=== PATIENT | female | born 1935 | race African-American/Black ===

== ENCOUNTER → 2017-10-09 14:58 | Outpatient (CLI) | payer MEDICARE, OTHER ==
[2015-04-26 14:18] VITALS: BMI 33.9
[~2017-10-09 14:58] MED LIST: CELEXA20 MG PO; COLACE100 MG PO; CYCLOBENZAPRINE10 MG PO; ELIQUIS2.5 MG PO; HYDREA; HYDROCHLOROTHIA25 MG PO; HYDROXYUREA500 MG PO; ISOSORBIDE DINI10 MG PO; ISOSORBIDE MONO30 M1 PO; LYRICA150 MG PO; MAXZIDE 75/501 TAB PO; NEXIUM40 MG PO; NORCO 7.5/325 T1 TA1 PO; PERCOCET 10/3251 TA1 PO; POTASSIUM CHLO10 ME1 PO; PREMARIN0.3 MG PO; ZETIA10 MG PO; ZOFRAN4 MG PO
== END | disposition home or self-care (01) ==
LOC: D.MRI 14:58
DX: M54.12 Radiculopathy, cervical region (principal)

== ENCOUNTER 2018-07-12 09:56 | Day surgery (SDC) | payer MEDICARE, OTHER ==
[2018-07-12 10:29] LABS: BASOPHILS 1.2 % (0-2); EOSINOPHILS 1.5 % (0-7); HEMATOCRIT 39.9 % (36.0-48.0); HEMOGLOBIN 12.6 g/dL (12-16); MCH 25.7 pg (26.0-34.0); MCHC 31.6 g/dL (31.0-37.0); MCV 81.3 fL (80.0-100.0); MONOCYTES 8.7 % (2-11); NEUTROPHILS 75.6 % (40-80); RBC 4.91 10x6/uL (4.00-5.40); RDW 23.5 % (11.5-14.5); WBC 10.4 10x3/uL (4.8-10.8)
[2018-07-12 10:30] LABS: PLATELET COUNT 457 10x3/uL (130-400)
[2018-07-12 10:37] LABS: ANION GAP 10.8 mmol/L (8-16); CALCIUM 8.8 mg/dL (8.5-10.1); CARBON DIOXIDE 31.1 mmol/L (21.0-32.0); CREATININE - SERUM 1.3 mg/dL (0.6-1.3); POTASSIUM - SERUM 3.9 mmol/L (3.5-5.1)
[2018-07-12 11:23] VITALS: BP 157/68; BMI 35.2
[2018-07-12] MEDS ORDERED: HYDROCODON-ACE1 EA10 PO (13:59)
--- NOTE | 2018-07-13 14:15 | OP ---
PATIENT NAME: ZENIA DILL MEDICAL RECORD: [id number] :31 LOCATION:D.OPS ADMISSION DATE: SURGEON: ALBERT HUDSON MD DATE OF OPERATION: 07/12/2018 PREOPERATIVE DIAGNOSIS: Carpal tunnel syndrome of the right wrist. POSTOPERATIVE DIAGNOSIS: Carpal tunnel syndrome of the right wrist. PROCEDURE: Right carpal tunnel release. SURGEON: Albert Hudson MD ANESTHESIA: General. INTRAOPERATIVE COMPLICATIONS: None. SUMMARY OF PATHOLOGIC FINDINGS: The patient had a very tight transverse carpal ligament, consistent with preoperative diagnosis. OPERATIVE SUMMARY IN DETAIL: After obtaining the appropriate preoperative orthopedic surgery consent as well as anesthetic consultation, evaluation, and clearance, the patient was brought to the operating room and placed on the operating table in the supine position. After general laryngeal mask was administered, tourniquet was placed about the proximal aspect of the right upper extremity. The right upper extremity was then prepped and draped in a routine sterile fashion. Arm was exsanguinated. Tourniquet was inflated to 250 mmHg. A mid palmar crease incision was created and taken down to the level of the palmar fascia, which was incised to reveal the distal aspect of the transverse carpal ligament, which was incised to reveal the median nerve. The patient's transverse carpal ligament was very thickened and compressive. Under direct visualization, with fair protection, the entire transverse carpal ligament was incised to the proximal wrist crease. Under direct visualization, the wound was then irrigated and closed with 4-0 Prolene. Area was locally infiltrated with 0.25% Marcaine plain. Sterile dressings were applied. Tourniquet was deflated. The patient was awakened and taken to the recovery room in stable condition. All final needle and sponge counts were correct. TRANSINT:[id number] Voice Confirmation ID: [id number] DOCUMENT ID: [id number] ALBERT HUDSON MD at 1415 CC: [id number] DICTATION DATE: 07/12/18 1401 QUARTER BACKER: 07/12/182224 [facility] 07/12/18 [place] [address]
== END 2018-07-12 18:25 | disposition home or self-care (01) ==
LOC: D.OPS 09:56
PROVIDERS: Anesthesiology
DX: G56.01 Carpal tunnel syndrome, right upper limb (principal); Z01.812 Encounter for preprocedural laboratory examination

== ENCOUNTER 2018-11-11 05:30 | Day surgery (SDC) | payer MEDICARE, OTHER ==
[2018-11-10 16:33] LABS: HEMATOCRIT 35.6 % (36.0-48.0); HEMOGLOBIN 11.4 g/dL (12-16); MCH 25.3 pg (26.0-34.0); MCV 79.1 fL (80.0-100.0); RDW 24.6 % (11.5-14.5); WBC 10.2 10x3/uL (4.8-10.8)
[2018-11-10 16:36] LABS: ANION GAP 14.9 mmol/L (8-16); CALCIUM 8.6 mg/dL (8.5-10.1); CARBON DIOXIDE 25.3 mmol/L (21.0-32.0); CREATININE - SERUM 1.4 mg/dL (0.6-1.3); POTASSIUM - SERUM 4.2 mmol/L (3.5-5.1)
[2018-11-10 16:49] LABS: PLATELET COUNT 611 10x3/uL (130-400)
[2018-11-10 17:28] LABS: EOSINOPHILS 4 % (0-7); LYMPHOCYTES 17 % (15-50); MONOCYTES 1 % (2-11); NEUTROPHILS 77 % (40-80); PLATELET ESTIMATE INCREASED
[~2018-11-11] VITALS: Ht 162.6 cm; Wt 93.0 kg
[~2018-11-11 05:30] MED LIST changes: +HYDROCODON-ACE1 EA10 PO
[2018-11-11] MEDS ORDERED: BAYER CHEWABLE81 MG PO (06:19)
[2018-11-11 06:30] VITALS: BP 144/68; Ht 162.6 cm; Wt 93.0 kg
--- NOTE | 2018-11-11 08:05 | NUR ---
0745 - PT DISPLAYS ATYPICAL HEART RHYTHM, BIGEMINYWITH PACS, PVCS. 12 LEAD AKG ORDERED BY ANESTHESIA. DR LERNER WILL EVALUATE.
--- NOTE | 2018-11-11 08:16 | NUR ---
POST [address] EVALU[address] BY [address] LERNER. ORDERS RECEIVED AND IMPLEMENTED.
[2018-11-11] MEDS ORDERED: HYDROCODON-ACE1 EA10 PO (08:26)
--- NOTE | 2018-11-11 08:31 | NUR ---
BIGEMINY CONVERT TO SINUS POST ADMINISTRATION OF LIDOCAINE, THEN RETURNS TO BIGEMINY. DR LERNER RECOMMENDS THAT PTSEE HER SPECIAL DELIVERY MESSENGER PROMPTLY. PT HAS EXISTING SPECIAL DELIVERY MESSENGER IN [place].
--- NOTE | 2018-11-11 09:45 | NUR ---
PATIENT UP AND AROUND IN ROOM WITH STAND-BY ASSIST. NO DIZZINESS OR UNSTEADINESS. PIV DC'D WITH TIP INTACT. DISCHARGE INSTRUCTIONS REVIEWED WITH PATIENT. AWAITING SON TO ARRIVE TO PROVIDE TRANSPORTATION HOME. PATIENT SITTING IN CHAIR IN ROOM WITH CALL BUTTON IN HAND
--- NOTE | 2018-11-11 10:30 | NUR ---
PATIENT'S SON HAS ARRIVED, DISCHARGED HOME VIA WHEELCHAIR TO PRIVATE VEHICLE WITH SON. THIS NURSE REINFORCES VERBALLY WITH SON AND PATIENT THAT RIGHT FINGER SWELLING NEEDS TO BE ADDRESSED BY PRIMARY CARE TOMORROW
--- NOTE | 2018-11-12 15:25 | OP ---
PATIENT NAME: ZENIA DILL MEDICAL RECORD: [id number] :33 LOCATION:D.OPS ADMISSION DATE: SURGEON: ALBERT HUDSON MD DATE OF OPERATION: 11/11/2018 PREOPERATIVE DIAGNOSIS: Carpal tunnel syndrome of the left wrist. POSTOPERATIVE DIAGNOSIS: Carpal tunnel syndrome of the left wrist. PROCEDURE: Carpal tunnel release. SURGEON: Albert Hudson MD RIVET HEATER GAS: Caitlin Dewitt INTRAOPERATIVE COMPLICATIONS: None. SUMMARY OF PATHOLOGIC FINDINGS: The patient has very a tight transverse carpal ligament consistent with preoperative diagnosis. OPERATIVE SUMMARY IN DETAIL: After obtaining the appropriate preoperative orthopedic surgery consent as well as anesthetic consultation, evaluation and clearance, the patient was brought to the operating room and placed on the operating table in a supine position. After adequate general laryngeal mask airway was administered, tourniquet was placed about the proximal aspect of the left upper extremity. Left upper extremity was then prepped and draped in routine sterile fashion. At this point, the appropriate preoperative time-out was taken including the appropriate operative site, medications as well as antibiotics. At this point, the arm was elevated and exsanguinated, tourniquet inflated to 250 mmHg. A mid palmar incision was made in line with the fourth metacarpal ray, was taken down to the level of the transverse carpal ligament distally which was identified and incised. The median nerve was identified and then protected with a freer elevator. At this point, Nanotion light knife was utilized to completely excise the transverse carpal ligament under direct visualization. Having completed this, the wound was irrigated and closed. The area was locally infiltrated with 0.25% Marcaine plain. Sterile dressings were applied. Tourniquet was deflated. The patient was awakened and taken to the recovery room in stable condition. All final needle and sponge counts were correct. TRANSINT:[id number] Voice Confirmation ID: [id number] DOCUMENT ID: [id number] ALBERT HUDSON MD at 1525 CC: [id number] DICTATION DATE: 11/12/18 1033 HAND STAPLER: 11/12/18 1112 [facility] 11/11/18 [place] [address]
== END 2018-11-11 10:32 | disposition home or self-care (01) ==
LOC: D.OPS 05:30
PROVIDERS: Anesthesiology; ATTEND Orthopaedic Surgery
DX: G56.02 Carpal tunnel syndrome, left upper limb (principal); Z01.812 Encounter for preprocedural laboratory examination

== ENCOUNTER 2019-01-22 09:40 | Emergency (ER) | payer MEDICARE, OTHER ==
[~2019-01-22] VITALS: Ht 162.6 cm; Wt 90.0 kg
[~2019-01-22 09:40] MED LIST changes: +BAYER CHEWABLE81 MG PO
[2019-01-22 09:48] VITALS: Ht 162.6 cm; Wt 90.0 kg
[2019-01-22] MEDS ORDERED: SEROQUEL50 MG PO (09:53)
[2019-01-22] MEDS ORDERED: VOLTAREN100 GM TOPICAL (09:54)
[2019-01-22] MEDS ORDERED: MAXZIDE 75/501 TAB PO (09:54)
[2019-01-22] MEDS ORDERED: ULTRAM50 MG PO (11:27)
[2019-01-22] MEDS ORDERED: PREDNISONE10 MG PO (11:27)
[2019-01-22 12:23] VITALS: BP 128/82
== END 2019-01-22 12:24 | disposition home or self-care (01) ==
LOC: D.ER 09:40
DX: M79.672 Pain in left foot (principal)

== ENCOUNTER → 2019-03-28 16:23 | Outpatient (CLI) | payer MEDICARE, OTHER ==
[2019-01-22 09:48] VITALS: BMI 34.0
[~2019-03-28 16:23] MED LIST changes: +PREDNISONE10 MG PO; +SEROQUEL50 MG PO; +ULTRAM50 MG PO; +VOLTAREN100 GM TOPICAL
[2019-03-28 17:09] LABS: BASOPHILS 1.1 % (0-2); HEMOGLOBIN 11.7 g/dL (12-16); IMMATURE GRANULOCYTES 0.8 % (0-5); LYMPHOCYTES 10.9 % (15-50); MCH 25.7 pg (26.0-34.0); MCHC 30.8 g/dL (31.0-37.0); MCV 83.5 fL (80.0-100.0); MONOCYTES 5.1 % (2-11); NEUTROPHILS 81.1 % (40-80); PLATELET COUNT 534 10x3/uL (130-400); RBC 4.55 10x6/uL (4.00-5.40); RDW 25.6 % (11.5-14.5); WBC 13.4 10x3/uL (4.8-10.8)
[2019-03-28 17:45] LABS: ANION GAP 11.3 mmol/L (8-16); CALCIUM 8.9 mg/dL (8.5-10.1); CARBON DIOXIDE 29.7 mmol/L (21.0-32.0); CREATININE - SERUM 1.3 mg/dL (0.6-1.3); URIC ACID 6.7 mg/dL (2.6-7.2)
== END | disposition home or self-care (01) ==
LOC: D.LAB 16:23
PROVIDERS: ATTEND Family Medicine
DX: M10.9 Gout, unspecified (principal)

== ENCOUNTER → 2019-10-21 09:59 | Outpatient (CLI) | payer MEDICARE, OTHER ==
[2019-01-22 09:48] VITALS: BMI 34.0
== END | disposition home or self-care (01) ==
LOC: D.MRI 09:59
PROVIDERS: ATTEND Orthopaedic Surgery
DX: M54.16 Radiculopathy, lumbar region (principal)

== ENCOUNTER 2020-05-26 10:07 | Inpatient (IN) | payer MEDICARE, OTHER ==
[~2020-05-26] VITALS: Ht 162.6 cm; Wt 74.8 kg
[2020-05-26] MEDS ORDERED: HYDROCODONE-AC1 EAC2 PO (10:27)
[2020-05-26] MEDS ORDERED: ESTRACE 0.5 MG0.5 MG PO (10:27)
[2020-05-26 10:32] LABS: BASOPHILS 1.3 % (0-2); HEMATOCRIT 36.4 % (36.0-48.0); HEMOGLOBIN 12.3 g/dL (12-16); IMMATURE GRANULOCYTES 2.5 % (0-5); LYMPHOCYTES 7.6 % (15-50); MCH 25.8 pg (26.0-34.0); MCHC 33.8 g/dL (31.0-37.0); MCV 76.5 fL (80.0-100.0); MONOCYTES 7.8 % (2-11); NEUTROPHIL ABS# 12.58 10x3/uL (1.56-6.13); NEUTROPHILS 79.8 % (40-80); RBC 4.76 10x6/uL (4.00-5.40); RDW 25.5 % (11.5-14.5); WBC 15.7 10x3/uL (4.8-10.8)
[2020-05-26 10:33] LABS: PLATELET COUNT 888 10x3/uL (130-400)
[2020-05-26 10:44] LABS: CALC OSMOLALITY 249 mosm/kg (275-300); CHLORIDE - SERUM 91 mmol/L (98-107); CREATININE - SERUM 1.1 mg/dL (0.6-1.3); GLUCOSE 105 mg/dL (74-106); POTASSIUM - SERUM 3.6 mmol/L (3.5-5.1); SODIUM 123 mmol/L (136-145); UREA NITROGEN 17 mg/dL (7-18); eGFR NON AFRICAN AMERICAN 50 mL/min (90-120)
[2020-05-26 10:52] LABS: ALBUMIN 4.1 g/dL (3.4-5.0); ALKALINE PHOSPHATASE 59 U/L (30-120); ALT (SGPT) 15 U/L (10-68); AMYLASE - SERUM 55 U/L (25-115); BILIRUBIN - TOTAL 0.65 mg/dL (0.2-1.3); LIPASE 159 U/L (73-393); PROTEIN - SERUM 7.1 g/dL (6.4-8.2); TROPONIN-I < 0.017 ng/mL (0.000-0.060)
--- NOTE | 2020-05-26 11:26 | NUR ---
URINE COLLECTED AND SENT TO LAB.
[2020-05-26 12:21] LABS: BILIRUBIN NEGATIVE (NEGATIVE); KETONE NEGATIVE (NEGATIVE); NITRITE NEGATIVE (NEGATIVE); UROBILINOGEN NORMAL mg/dL (< 2)
[2020-05-26 12:23] LABS: BACTERIA FEW HPF (NONE SEEN); SQUAMOUS EPITHELIAL 0-5 HPF (0-4); WHITE CELLS - URINE 2 HPF (0-4)
--- NOTE | 2020-05-26 15:14 | NUR ---
ASSIST PT UP TO BEDSIDE COMMODE. PRICILA. WELL.
[2020-05-26 16:50] VITALS: BP 129/61
--- NOTE | 2020-05-26 17:25 | NUR ---
ARRIVES TO ROOM PER STRETCHER
--- NOTE | 2020-05-26 17:46 | NUR ---
DR SR HERE TO SEE PT
[2020-05-26 17:56] VITALS: BMI 28.4
[2020-05-26 20:00] VITALS: BP 134/53
[2020-05-26 21:00] VITALS: BP 150/93
[2020-05-27] VITALS: BP 131/57
[2020-05-27 04:00] VITALS: BP 127/58
[2020-05-27 05:33] LABS: BASOPHILS 0.9 % (0-2); EOSINOPHILS 1.6 % (0-7); HEMATOCRIT 31.5 % (36.0-48.0); HEMOGLOBIN 10.4 g/dL (12-16); IMMATURE GRANULOCYTES 1.7 % (0-5); LYMPHOCYTES 11.4 % (15-50); MCH 25.4 pg (26.0-34.0); MONOCYTES 8.5 % (2-11); NEUTROPHIL ABS# 8.71 10x3/uL (1.56-6.13); NEUTROPHILS 75.9 % (40-80); PLATELET COUNT 743 10x3/uL (130-400); RBC 4.09 10x6/uL (4.00-5.40); RDW 25.5 % (11.5-14.5)
[2020-05-27 05:42] LABS: WBC 11.5 10x3/uL (4.8-10.8)
[2020-05-27 05:55] LABS: APTT 52.2 SECONDS (22.8-39.4); INR 1.4 (0.85-1.17); PROTIME 15.9 SECONDS (11.6-15.0)
[2020-05-27 06:05] LABS: ALBUMIN 3.2 g/dL (3.4-5.0); BILIRUBIN - TOTAL 0.57 mg/dL (0.2-1.3); CALCIUM 8.4 mg/dL (8.5-10.1); CARBON DIOXIDE 23.3 mmol/L (21.0-32.0); PHOSPHOROUS 3.6 mg/dL (2.5-4.9); PROTEIN - SERUM 5.9 g/dL (6.4-8.2)
[2020-05-27 06:09] LABS: ANION GAP 10.7 mmol/L (8-16)
--- NOTE | 2020-05-27 07:10 | NUR ---
I have reviewed this patient and I concur with the Shift Assessment completed by the Licensed Practical Nurse today this shift.
--- NOTE | 2020-05-27 07:27 | NUR ---
RESTING IN BED WITH EYES CLOSED, NO CURRENT S/S OF DISTRESS. IV LOCATED TO RIGHT FOREARM RUNNING NS @ 100ML/HR. WILL CONT TO MONITOR.
[2020-05-27 08:39] VITALS: BP 136/59
[2020-05-27 13:31] VITALS: BP 127/62
[2020-05-27 17:06] VITALS: BP 151/88
[2020-05-27 20:00] VITALS: BP 131/50
--- NOTE | 2020-05-27 21:00 | NUR ---
A&O X 4. DRESSING TO RIGHT FOREARM IV LEAKING. REMOVED AND NEW DRESSING APPLIED. BLOOD RETURN AND FLUSHES WITH EASE. DENIES FURTHER NEEDS AT THIS TIME, CTM.
[2020-05-28] VITALS: BP 147/79
--- NOTE | 2020-05-28 01:26 | NUR ---
I have reviewed this patient and I concur with the Shift Assessment completed by the Licensed Practical Nurse today this shift.
[2020-05-28 04:00] VITALS: BP 163/69
[2020-05-28 06:26] LABS: ANION GAP 8.8 mmol/L (8-16); CALCIUM 7.9 mg/dL (8.5-10.1); CARBON DIOXIDE 24.9 mmol/L (21.0-32.0)
[2020-05-28 06:27] LABS: POTASSIUM - SERUM 3.7 mmol/L (3.5-5.1)
[2020-05-28 06:30] LABS: BASOPHILS 1.2 % (0-2); EOSINOPHILS 2.5 % (0-7); HEMATOCRIT 31.5 % (36.0-48.0); HEMOGLOBIN 10.4 g/dL (12-16); IMMATURE GRANULOCYTES 1.7 % (0-5); LYMPHOCYTE ABS# 1.37 10x3/uL (1.18-3.74); LYMPHOCYTES 11.6 % (15-50); MCH 25.8 pg (26.0-34.0); MCV 78.2 fL (80.0-100.0); MONOCYTES 7.2 % (2-11); NEUTROPHIL ABS# 8.98 10x3/uL (1.56-6.13); NEUTROPHILS 75.8 % (40-80); RBC 4.03 10x6/uL (4.00-5.40); RDW 25.9 % (11.5-14.5); WBC 11.8 10x3/uL (4.8-10.8)
[2020-05-28 06:40] LABS: PLATELET COUNT 569 10x3/uL (130-400)
--- NOTE | 2020-05-28 07:15 | HP ---
PATIENT: ZENIA DILL MEDICAL RECORD: [id number] ACCOUNT: [id number] LOCATION:D.MS [address]2238 : 33 ADMISSION DATE: 05/26/20 PCP: No PCP HISTORY AND PHYSICAL EXAMINATION REASON FOR ADMISSION: Nausea, diarrhea, and fatigue. HISTORY OF PRESENT ILLNESS: The patient is an 85-year-old -[place] female who lives in [place], [place] and has a physician for primary care in [place]. She states that she had upper respiratory symptoms first of the week and her doctor's nurse called in an antibiotic, it was 500 mg of unknown drug twice a day. By the third day, she developed nausea and occasional vomiting. She then developed diarrhea and became very fatigued. She came to the ED for this reason. She denies any fever, denies productive cough. She denies any hematochezia or melena. She also said she had hot and cold sweats, but denied fever, chest pain. PAST MEDICAL HISTORY: Significant for osteoarthritis, gout, degenerative lumbar disc disease, obesity, history of uterine fibroid post-hysterectomy, history of piriformis syndrome, essential hypertension, GERD, hyperlipidemia, chronic constipation, family history of colon cancer, history of splenomegaly with thrombocytosis, had been on hydroxyurea in the past, not currently. History of cataracts and history of heart murmur. PAST SURGICAL HISTORY: She has had TAHBSO. She has had bilateral knee replacements, right hip replacement, bilateral carpal tunnel release, and lumbar disc surgery times 2. FAMILY HISTORY: Mother at 54 from cancer of the lung. Father of colon cancer. SOCIAL HISTORY: She lives with her son who has heart failure. She is a remote smoker, 9 pack year history, quit years ago. Does not drink alcohol. CURRENT MEDICATIONS: 1. Flexeril one every 8 hours p.r.n. muscle spasm 2. Potassium chloride 10 mEq a day. 3. Seroquel 50 mg at bedtime. 4. Triamterene 75/50 one q.a.m. 5. Diclofenac gel applied to the joint topically q.i.d. 6. Estrace 0.5 mg p.o. daily. 7. Hydrocodone 7.5/325 one p.o. q.4 hours p.r.n. pain. 8. Isosorbide mononitrate ER 30 mg daily. 9. Aspirin 81 mg a day. 10. Colace 100 mg at bedtime. 11. Lyrica 150 mg p.o. b.i.d. 12. Nexium 40 mg a day. 13. Zetia 10 mg daily. ALLERGIES: None mentioned. REVIEW OF SYSTEMS: GENERAL: He has been fatigued with decreased appetite over the last 5 days with nausea. No recent fever. HEENT: No recent new visual change, sinus congestion, sore throat. HISTORY AND PHYSICAL [id number] ZENIA DILL RESPIRATORY: Denies shortness of breath. She has had mild cough, nonproductive for 5 days. CARDIAC: Denies palpitations, PND, orthopnea, or history of angina or [place]. GASTROINTESTINAL: She has had nausea over the last several days, vomited once, but not repetitive. Then, she developed diarrhea over the last 2 days, 4-5 stools. She denies hematochezia, melena, or bright red blood per rectum. She denies a history of gallbladder disease. Last colonoscopy was at age 78. GENITOURINARY: She has mild incontinence. No recent dysuria. INCLUSION SPECIAL EDUCATOR: No vaginal bleeding. She has post-hysterectomy and postmenopausal and remains on hormones. ENDOCRINE: Denies polyuria, polydipsia, heat or cold intolerance. NEUROLOGIC: No history of stroke, TIA, vascular headaches, memory loss, seizures. INTEGUMENTARY: No rash or itching. PSYCHIATRIC: Denies depressed mood. PHYSICAL EXAMINATION: VITAL SIGNS: Temperature 98.6 Fahrenheit orally, pulse 81 and regular, respirations 18, blood pressure 156/74. She is afebrile. Her O2 sat is 100% initially on room air. HEENT: Eyes are clear. Oropharynx, except for lens implants oropharynx unremarkable. NECK: Supple. CHEST: Clear. HEART: Regular, with faint I/ systolic ejection murmur at the aortic area. BREASTS: Symmetrical. ABDOMEN: Soft, obese, nontender throughout. Bowel sounds are active. EXTREMITIES: She has postoperative knee replacement scars bilaterally. She has 1+ mild pedal edema. NEUROLOGICAL: She is oriented to person, place, and time. NEUROLOGIC: Cranial nerves are intact. Gait was not tested due to illness. There are no obvious motor or sensory deficits. PSYCHIATRIC: Denies depressed mood. Affect is appropriate. LABORATORY DATA: White count of 15.7 thousand with a normal diff. Her platelet counts 888,000, hemoglobin was 12.3, and hematocrit 36.4. Chemistry: Sodium is 123, potassium is 3.6, and glucose is 105. Liver functions are normal. Troponin is normal limits. Lipase and amylase are normal. UA shows trace protein, 0-5 squamous epithelial cells, otherwise unremarkable. DIAGNOSTIC DATA: Chest x-ray shows granulomatous changes in the jaime otherwise unremarkable. CT abdomen and pelvis shows gallbladder is present. Common bile duct is normal caliber. Liver appears normal except for small cyst inferiorly in the right lobe. Spleen is enlarged measuring 15 cm. Aortic and pelvic atherosclerosis noted without an aneurysm. No lymphadenopathy. Degenerative changes in thoracic and lumbar spine noted. Posterior fusion, lumbar spine is noted on the left. IMPRESSION: 1. Hyponatremia, possibly some vomiting and diuretic therapy. 2. Diarrhea. 3. Recent URI on antibiotics, clinically improved. 4. Chronic thrombocytosis, splenomegaly. 5. Hyperlipidemia. 6. Family history of colon cancer. HISTORY AND PHYSICAL [id number] ZENIA DILLIE 7. Osteoarthritis, chronic back pain, obesity, hypertension, hyperlipidemia. PLAN: We will hold diuretics, fluid restrict. Placed on normal saline at 3/4 maintenance dose. Unless diarrhea was copiously not checked for CDT at this time. We discussed further with her why she has discontinued hydroxyurea concerning her thrombocytosis. Further workup pending clinical course. TRANSINT:[id number] Voice Confirmation ID: [id number] DOCUMENT ID: [id number] ADRIANE SR MD at 0715 CC: [id number] DICTATION DATE: 05/26/201755 SENIOR QUALITY ENGINEER: 05/26/20 1855 ADM IN [facility] [address] [id number]
--- NOTE | 2020-05-28 08:27 | NUR ---
AM MEDS GIVEN PER EMAR AT THIS TIME. PT PULLED UP IN BED AND GIVEN WARM BLANKET PER REQUEST. BREAKFAST TRAY DELIVERED AT THIS TIME. RR EVEN NON LABORED. NO NEEDS VOICED. CLWR.
[2020-05-28 08:52] VITALS: BP 149/66
--- NOTE | 2020-05-28 10:16 | NUR ---
PT LYING IN SUPINE POSITION WITH HOB RAISED, RR EVEN NON LABORED. PT EYES CLOSED AND APPEARS TO BE RESTING COMFORTABLY. CLWR.
[2020-05-28 12:19] VITALS: BP 138/64
--- NOTE | 2020-05-28 14:28 | NUR ---
PT ASSISTED TO AND FROM RESTROOM BY PCT AT THIS TIME. PT TOLERATED WELL. RR EVEN NON LABORED. NO FURTHER NEEDS VOICED. CLWR.
[2020-05-28 16:01] VITALS: Ht 162.6 cm; Wt 74.8 kg
[2020-05-28 16:03] VITALS: BP 130/60
--- NOTE | 2020-05-28 17:10 | NUR ---
PT LYING IN BED AT THIS TIME WATCHING TV. PT SHOWERED WITH PCT. PT STATES TO FEEL BETTER. RR EVEN NON LABORED. IV INFUSING WITHOUT COMPLICATIONS. NO FURTHER NEEDS VOICED AT THIS TIME. CLWR.
[2020-05-28 21:36] VITALS: BP 128/76
--- NOTE | 2020-05-28 23:31 | NUR ---
I have reviewed this patient and I concur with the Shift Assessment completed by the Licensed Practical Nurse today this shift.
[2020-05-29 01:23] VITALS: BP 188/89
[2020-05-29 04:00] VITALS: BP 135/79
[2020-05-29 06:10] LABS: CALCIUM 7.6 mg/dL (8.5-10.1); CARBON DIOXIDE 21.3 mmol/L (21.0-32.0); CREATININE - SERUM 1.2 mg/dL (0.6-1.3); MAGNESIUM - SERUM 1.6 mg/dL (1.8-2.4); POTASSIUM - SERUM 3.3 mmol/L (3.5-5.1)
[2020-05-29 10:27] VITALS: BP 160/86
--- NOTE | 2020-05-29 11:23 | NUR ---
RESTING IN BED WITH NADN. ALERT WITH SOME CONFUSION NOTED. SKIN WARM AND DRY. AMBULATES WITH WALKER. AM MEDS TAKEN AND TOLERTED WELL. RECIEVED PAIN MED THIS AM FOR C/O SHOULDER PAIN WITH RELIEF NOTED. WILL CONTINUE TO MONITOR. CALL MANN IN REACH.
[2020-05-29 13:58] VITALS: BP 152/82
[2020-05-29 18:31] VITALS: BP 93/66
[2020-05-29 20:00] VITALS: BP 159/70
[2020-05-30 05:54] LABS: ANION GAP 12.2 mmol/L (8-16); CARBON DIOXIDE 23.4 mmol/L (21.0-32.0); MAGNESIUM - SERUM 1.7 mg/dL (1.8-2.4); POTASSIUM - SERUM 3.6 mmol/L (3.5-5.1)
[2020-05-30 06:34] VITALS: BP 179/85
--- NOTE | 2020-05-30 07:02 | NUR ---
Patient had shoulder pain that was managed with the prescribed pain medications. She is currently resting in bed with her eyes closed.
[2020-05-30] MEDS ORDERED: ESTRACE 0.5 MG0.5 MG PO (07:52)
[2020-05-30 07:53] VITALS: BP 164/68
--- NOTE | 2020-05-30 11:23 | MORECARE ---
CASE MANAGEMENT DISCHARGE SUMMARY PATIENT: ZENIA DILL UNIT: [id number] ADM DATE: 05/26/20 AGE: 85 : 33 SEX: F ROOM/BED: D.[facility]8 AUTHOR: BLAS BECK PHYSICIAN: REFERRING PHYSICIAN: ADRIANE SR MD DATE OF SERVICE: 05/30/20 Discharge Plan Patient Name: ZENIA DILL [facility] [facility] 1935 Planned Disposition: Anticipated Discharge Date: Discharge Date: Expected LOS: Initial Reviewer: [email or web address] Initial Review Date: 05/26/2020 Generated: 05/30/20 12:22 pm Patient Name: ZENIA DILL Page [id number] at 1123 All edits/amendments must be made on the electronic document DICTATION DATE: 05/30/20 1123 MECHANICAL OPERATOR: WILLIAM 05/30/20 1123 RPT#: [id number] DC DATE: STATUS: ADM IN [facility] [address] [place] [address] END OF REPORT
--- NOTE | 2020-05-30 11:30 | MORECARE ---
CASE MANAGEMENT DISCHARGE SUMMARY PATIENT: ZENIA DILL UNIT: [id number] ADM DATE: 05/26/20 AGE: 85 : 33 SEX: F ROOM/BED: D.2238 AUTHOR: BLAS BECK PHYSICIAN: REFERRING PHYSICIAN: ADRIANE SR MD DATE OF SERVICE: 05/30/20 Discharge Plan Patient Name: ZENIA DILL Facility: [facility]:[place] : 1935 Planned Disposition: Anticipated Discharge Date: Discharge Date: Expected LOS: Initial Reviewer: [email or web address] Initial Review Date: 05/26/2020 Generated: 05/30/20 12:29 pm Comments DCP- Discharge Planning Updated by [email or web address]: Mia Krueger on 05/30/20 10:[address] Patient Name: ZENIA DILL Admission Status: ER Accout number: [id number] Admission Date: 05-26-2020 : 1935 Admission Diagnosis:HYPO-OSMOLALITY AND HYPONATREMIA Attending: ADRIANE SR Current LOS: 4 Anticipated DC Date: Planned Disposition: Primary Insurance: MEDICARE A & B Discharge Planning Comments: CM met with patient at bedside after obtaining verbal consent. CM discussed availability / needs of home health, REHAB and medical equipment. Patient states would like home health. I am faxing a referral to care [facility] home health. FIDEL and IMM signed,. Patient to dc to home with family today. Ekg Technician: Mia Krueger DCPIA - Discharge Planning Initial Assessment Updated by [email or web address]: Mia Krueger on 05/30/20 11:24 am * Is the patient Alert and Oriented? Yes * PCP RERE * Pharmacy [facility] * Preadmission Environment Home with Family * ADLs Independent * Other Equipment CANE, WALKER * Additional services required to return to the preadmission environment? No * Can the patient safely return to the preadmission environment? Yes * Has this patient been hospitalized within the prior 30 days at any hospital? No Coverage Notice Reviewer: [email or web address] Miguel A Krueger Notice Issued Date-Time: 05/30/2020 11:28 Notice Type: IM Discharge Notice Notice Delivered To: Patient Relationship to Patient: Member Of Parliament Name: Delivery Method: - Mahogany Days: Prior Verbal Notification: Recipient Understood Notice: Yes Recipient Signature: Yes Med Rec Note Co-signed by Attending: Coverage Notice Comment: Last DP export: 05/30/20 10:23 am Patient Name: ZENIA DILL Page [id number] at 1130 All edits/amendments must be made on the electronic document DICTATION DATE: 05/30/20 113 FINE ARTS TEACHER: WILLIAM 05/30/20 1130 RPT#: [id number] DC DATE: STATUS: ADM IN [facility] [address] [place] [address] END OF REPORT
--- NOTE | 2020-05-30 11:44 | MORECARE ---
CASE MANAGEMENT DISCHARGE SUMMARY PATIENT: ZENIA DILL UNIT: [id number] ADM DATE: 05/26/20 AGE: 85 : 33 SEX: F ROOM/BED: D.2238 AUTHOR: BLAS BECK PHYSICIAN: REFERRING PHYSICIAN: ADRIANE SR MD DATE OF SERVICE: 05/30/20 Discharge Plan Patient Name: ZENIA DILL Facility: [facility]:[place] : 1935 Planned Disposition: Anticipated Discharge Date: Discharge Date: Expected LOS: Initial Reviewer: [email or web address] Initial Review Date: 05/26/2020 Generated: 05/30/20 12:44 pm Comments DCP- Discharge Planning Updated by [email or web address]: Mia Krueger on 05/30/20 10:[address] Patient Name: ZENIA DILL Admission Status: ER Accout number: [id number] Admission Date: 05-26-2020 : 1935 Admission Diagnosis:HYPO-OSMOLALITY AND HYPONATREMIA Attending: ADRIANE SR Current LOS: 4 Anticipated DC Date: Planned Disposition: Primary Insurance: MEDICARE A & B Discharge Planning Comments: CM met with patient at bedside after obtaining verbal consent. CM discussed availability / needs of home health, REHAB and medical equipment. Patient states would like home health. I am faxing a referral to [address] FIDEL and IMM signed,. Patient to dc to home with family today. Cash Grain Farmer: Mia Krueger DCPIA - Discharge Planning Initial Assessment Updated by [email or web address]: Mia Krueger on 05/30/20 11:24 am * Is the patient Alert and Oriented? Yes * PCP RERE * Pharmacy [facility] * Preadmission Environment Home with Family * ADLs Independent * Other Equipment CANE, WALKER * Additional services required to return to the preadmission environment? No * Can the patient safely return to the preadmission environment? Yes * Has this patient been hospitalized within the prior 30 days at any hospital? No External Providers External Provider: [facility] Next Contact Date: Service Request Date: Service Type: Resolution: Reviewer: Comments: Coverage Notice Reviewer: [email or web address] - Mia Krueger Notice Issued Date-Time: 05/30/2020 11:28 Notice Type: IM Discharge Notice Notice Delivered To: Patient Relationship to Patient: Knitting Machine Tender Name: Delivery Method: - Mahogany Days: Prior Verbal Notification: Recipient Understood Notice: Yes Recipient Signature: Yes Med Rec Note Co-signed by Attending: Coverage Notice Comment: Last DP export: 05/30/20 10:30 am Patient Name: ZENIA DILL Page 48941 at 1144 All edits/amendments must be made on the electronic document DICTATION DATE: 05/30/20 1144 SENIOR CORPORATE RECRUITER: WILLIAM 05/30/20 1144 RPT#: [id number] DC DATE: STATUS: ADM IN [facility] [address] [place] [address] END OF REPORT
[2020-05-30 12:17] VITALS: BP 145/61
--- NOTE | 2020-05-30 12:52 | NUR ---
PT IV ACSESS REMOVED. PT DISCHAARGED.
--- NOTE | 2020-05-30 13:19 | NUR ---
ATTEMPTED TO NOTIFY PAIENT SON OF HER DISCHARGE UNABLE TO REACH VIA PHONE MESSAGE LEFT ON VOICEMAIL.
[2020-05-30 15:48] VITALS: BP 158/71
--- NOTE | 2020-05-31 08:39 | MORECARE ---
CASE MANAGEMENT DISCHARGE SUMMARY PATIENT: ZENIA DILL UNIT: [id number] ADM DATE: 05/26/20 AGE: 85 : 33 SEX: F ROOM/BED: D.2238 AUTHOR: BLAS BECK PHYSICIAN: REFERRING PHYSICIAN: ADRIANE SR MD DATE OF SERVICE: 05/31/20 Discharge Plan Patient Name: ZENIA DILL Facility: [facility]:[place] : 1935 Planned Disposition: Anticipated Discharge Date: Discharge Date: 05/30/2020 Expected LOS: Initial Reviewer: [email or web address] Initial Review Date: 05/26/2020 Generated: 05/31/20 9:38 am Comments DCP- Discharge Planning Updated by [email or web address]: Mia Krueger on 05/30/20 10:[address] Patient Name: ZENIA DILL Admission Status: ER Accout number: [id number] Admission Date: 05-26-2020 : 1935 Admission Diagnosis:HYPO-OSMOLALITY AND HYPONATREMIA Attending: ADRIANE SR Current LOS: 4 Anticipated DC Date: Planned Disposition: Primary Insurance: MEDICARE A & B Discharge Planning Comments: CM met with patient at bedside after obtaining verbal consent. CM discussed availability / needs of home health, REHAB and medical equipment. Patient states would like home health. I am faxing a referral to [facility] home health. FIDEL and IMM signed,. Patient to dc to home with family today. Auto Hauler: Mia Krueger DCPIA - Discharge Planning Initial Assessment Updated by [email or web address]: Mia Krueger on 05/30/20 11:24 am * Is the patient Alert and Oriented? Yes * PCP RERE * Pharmacy [facility] * Preadmission Environment Home with Family * ADLs Independent * Other Equipment CANE, WALKER * Additional services required to return to the preadmission environment? No * Can the patient safely return to the preadmission environment? Yes * Has this patient been hospitalized within the prior 30 days at any hospital? No Coverage Notice Reviewer: [id number] - Mia Krueger Notice Issued Date-Time: 05/30/2020 11:28 Notice Type: IM Discharge Notice Notice Delivered To: Patient Relationship to Patient: Petroleum Refinery Laborer Name: Delivery Method: - Mahogany Days: Prior Verbal Notification: Recipient Understood Notice: Yes Recipient Signature: Yes Med Rec Note Co-signed by Attending: Coverage Notice Comment: Last DP export: 05/30/20 10:44 am Patient Name: ZENIA DILL Page [phone] at 0839 All edits/amendments must be made on the electronic document DICTATION DATE: 05/31/20838 TITLE ONE READING TEACHER: WILLIAM 05/31/20838 RPT#: [id number] DC DATE:05/30/20 STATUS: DIS IN [facility] [address] [place] [address] END OF REPORT
== END 2020-05-30 17:52 | disposition home health service (06) | DRG 641 ==
LOC: D.ER 10:07 → D.EDHOLD 13:25 → D.MS 13:25
PROVIDERS: Family Medicine; ADMIT Family Medicine; ATTEND Family Medicine
DX: E87.1 Hypo-osmolality and hyponatremia (principal); R19.7 Diarrhea, unspecified; D47.3 Essential (hemorrhagic) thrombocythemia; E78.5 Hyperlipidemia, unspecified; I10 Essential (primary) hypertension; G89.29 Other chronic pain; M54.9 Dorsalgia, unspecified; E66.9 Obesity, unspecified; Z68.28 Body mass index [BMI] 28.0-28.9, adult; K21.9 Gastro-esophageal reflux disease without esophagitis; M19.90 Unspecified osteoarthritis, unspecified site; M51.36 Other intervertebral disc degeneration, lumbar region; K59.09 Other constipation

== ENCOUNTER 2020-05-31 19:46 | Inpatient (IN) | payer MEDICARE, OTHER ==
[~2020-05-31] VITALS: Ht 162.6 cm; Wt 81.6 kg
[~2020-05-31 19:46] MED LIST changes: +ESTRACE 0.5 MG0.5 MG PO; +HYDROCODONE-AC1 EAC2 PO
[2020-05-31 20:36] LABS: HEMATOCRIT 32.8 % (36.0-48.0); HEMOGLOBIN 10.9 g/dL (12-16); LYMPHOCYTE ABS# 0.93 10x3/uL (1.18-3.74); MCH 25.7 pg (26.0-34.0); MCHC 33.2 g/dL (31.0-37.0); MCV 77.4 fL (80.0-100.0); NEUTROPHIL ABS# 9.12 10x3/uL (1.56-6.13); PLATELET COUNT 887 10x3/uL (130-400); RBC 4.24 10x6/uL (4.00-5.40); RDW 26.4 % (11.5-14.5)
[2020-05-31 20:44] LABS: APTT 47.5 SECONDS (22.8-39.4); INR 1.32 (0.85-1.17); PROTIME 15.2 SECONDS (11.6-15.0)
[2020-05-31 20:45] LABS: D-DIMER-QUANTITATIVE 0.31 ug/mLFEU (0.20-0.54)
[2020-05-31 20:55] LABS: ANISOCYTOSIS 1+; EOSINOPHILS 1 % (0-7); LYMPHOCYTES 5 % (15-50); MONOCYTES 6 % (2-11); NEUTROPHILS 86 % (40-80); PLATELET ESTIMATE INCREASED; POIKILOCYTOSIS 2+
[2020-05-31 21:11] LABS: CALCIUM 8.7 mg/dL (8.5-10.1); CARBON DIOXIDE 23.6 mmol/L (21.0-32.0); CHLORIDE - SERUM 94 mmol/L (98-107); CREATININE - SERUM 1.1 mg/dL (0.6-1.3); GLUCOSE 96 mg/dL (74-106); SODIUM 128 mmol/L (136-145); eGFR NON AFRICAN AMERICAN 50 mL/min (90-120)
[2020-05-31 21:14] LABS: CALC OSMOLALITY 259 mosm/kg (275-300); POTASSIUM - SERUM 4.5 mmol/L (3.5-5.1); UREA NITROGEN 20 mg/dL (7-18)
--- NOTE | 2020-05-31 21:25 | NUR ---
PATIENT PLACED ON BEDPAN.
[2020-05-31 21:29] LABS: ALBUMIN 3.6 g/dL (3.4-5.0); ALKALINE PHOSPHATASE 51 U/L (30-120); ALT (SGPT) 32 U/L (10-68); BILIRUBIN - TOTAL 0.57 mg/dL (0.2-1.3); CKMB 0.7 U/L (0.0-3.6); CREATINE KINASE 52 UL (21-215); MAGNESIUM - SERUM 1.7 mg/dL (1.8-2.4); PRO BNP 6970 pg/mL (0-450); PROTEIN - SERUM 6.6 g/dL (6.4-8.2); TROPONIN-I 0.029 ng/mL (0.000-0.060)
--- NOTE | 2020-06-01 00:40 | NUR ---
ADMITTED TO ROOM 2120 FROM ER/WHEELCHAIR W/DX CHF AND HYPONATREMIA. PT IS AWAKE, ALERT, ORIENTED. RESP EVEN AND UNLABORED ON RA. IV TO LT AC PATENT--STARTED IN ER PRIOR TO ADMIT. PLACED A PULL-UP ON PT FOR ACCIDENTS AND WHITE PADS ON BED. PT MADE COMFORTABLE IN BED, ORIENTATION TO ROOM GIVEN--NO FURTHER NEEDS VOICED AT THIS TIME. NO DISTRESS NOTED.
[2020-06-01 00:48] VITALS: BP 142/62; BMI 30.9
[2020-06-01 04:15] VITALS: BP 143/62
--- NOTE | 2020-06-01 06:38 | NUR ---
LYING IN BED AWAKE, ALERT, RESP EVEN AND UNLABORED ON RA. NO DISTRESS NOTED, DENIES ANY NEEDS.
[2020-06-01 06:55] LABS: ALBUMIN 3.5 g/dL (3.4-5.0); BILIRUBIN - TOTAL 0.75 mg/dL (0.2-1.3); CARBON DIOXIDE 27.8 mmol/L (21.0-32.0); MAGNESIUM - SERUM 1.7 mg/dL (1.8-2.4); PROTEIN - SERUM 6.4 g/dL (6.4-8.2); TROPONIN-I 0.029 ng/mL (0.000-0.060)
[2020-06-01 06:59] LABS: ANION GAP 9.9 mmol/L (8-16); POTASSIUM - SERUM 3.7 mmol/L (3.5-5.1)
[2020-06-01 07:54] LABS: BASOPHILS 1.1 % (0-2); EOSINOPHILS 1.9 % (0-7); HEMATOCRIT 31.5 % (36.0-48.0); HEMOGLOBIN 10.5 g/dL (12-16); IMMATURE GRANULOCYTES 1.7 % (0-5); LYMPHOCYTE ABS# 0.98 10x3/uL (1.18-3.74); LYMPHOCYTES 9.9 % (15-50); MCH 25.8 pg (26.0-34.0); MCHC 33.3 g/dL (31.0-37.0); MCV 77.4 fL (80.0-100.0); MONOCYTES 6.7 % (2-11); NEUTROPHIL ABS# 7.81 10x3/uL (1.56-6.13); NEUTROPHILS 78.7 % (40-80); RBC 4.07 10x6/uL (4.00-5.40); RDW 26.3 % (11.5-14.5); WBC 9.9 10x3/uL (4.8-10.8)
[2020-06-01 07:59] LABS: PLATELET COUNT 652 10x3/uL (130-400)
[2020-06-01 08:00] VITALS: BP 187/111
--- NOTE | 2020-06-01 09:51 | NUR ---
PATIENT TO REFUSE HER LASIX SHE STATES "I DON'T NEED IT" I EXPLAINED THE REASON WAS TO HELP PULL FLUID OFF HER AND SHE REPLIED, "THAT HAPPEN ALL NIGHT".
[2020-06-01 12:00] VITALS: BP 134/61
[2020-06-01 13:41] VITALS: Ht 162.6 cm; Wt 81.6 kg
[2020-06-01 15:00] VITALS: BP 126/92
--- NOTE | 2020-06-01 18:28 | NUR ---
up in chair. took miralax denies any c/o at present
[2020-06-01 20:00] VITALS: BP 112/52
--- NOTE | 2020-06-01 20:33 | NUR ---
INITIAL ROUNDS COMPLETED AT 1915 HRS. PT DENIED ANY DISCOMFORT. ASSESSMENT COMPLETED AT 1950 HRS. SR PER CM HR 60 WITH OCC PVC'S. VSS. ALERT AND ORIENTED TO PERSON, PLACE AND TIME. LOPEZ. PALPABLE PERIPHERAL PULSES. IV TO LAC SL. LUNGS DIMINISHED IN BASES BILAT. ABD SOFT WTIH ACTIVE BS NOTED. SR UP X2, CALL LIGHT WITHIN REACH.
--- NOTE | 2020-06-01 21:30 | NUR ---
PM MEDS GIVEN. PT CURRENTLY RESTING WITH EYES CLOSED. RESP EVEN AND REGULAR. SR UP X2, CALL LIGHT WITHIN REACH AND DOOR OPEN.
--- NOTE | 2020-06-01 23:50 | NUR ---
PT RESTING WITH EYES CLOSED. RESP EVEN AND REGULAR. CALL LIGHT WITHIN REACH.
[2020-06-02] VITALS: BP 111/56
--- NOTE | 2020-06-02 01:40 | NUR ---
PT RESTING WITH EYES CLOSED. RESP EVEN AND REGULAR. CALL LIGHT WITHIN REACH.
[2020-06-02 04:00] VITALS: BP 109/55
--- NOTE | 2020-06-02 04:11 | NUR ---
PT AWAKE; DENIES ANY DISCOMFORT. CALL LIGHT WITHIN REACH.
[2020-06-02 05:54] LABS: HEMATOCRIT 30.6 % (36.0-48.0); HEMOGLOBIN 9.9 g/dL (12-16); LYMPHOCYTE ABS# 1.37 10x3/uL (1.18-3.74); MCH 25.3 pg (26.0-34.0); MCHC 32.4 g/dL (31.0-37.0); MCV 78.1 fL (80.0-100.0); PLATELET COUNT 676 10x3/uL (130-400); RBC 3.92 10x6/uL (4.00-5.40); RDW 26.5 % (11.5-14.5); WBC 8.4 10x3/uL (4.8-10.8)
--- NOTE | 2020-06-02 06:03 | NUR ---
VSS THROUGHOUT NIGHT. PT RESTED WELL DURING SHIFT. PT AMBULATED INTO HALLWAYS THIS AM WITH WALKER. GAIT STEADY. NEEDS MET; WILL CONTINUE TO MONITOR.
[2020-06-02 06:26] LABS: ANION GAP 12.2 mmol/L (8-16); CALCIUM 8.6 mg/dL (8.5-10.1); CARBON DIOXIDE 26.5 mmol/L (21.0-32.0); CREATININE - SERUM 1.2 mg/dL (0.6-1.3); MAGNESIUM - SERUM 1.8 mg/dL (1.8-2.4); PHOSPHOROUS 4.5 mg/dL (2.5-4.9); POTASSIUM - SERUM 3.7 mmol/L (3.5-5.1)
[2020-06-02 07:00] VITALS: BP 109/76
[2020-06-02 09:03] LABS: EOSINOPHILS 3 % (0-7); LYMPHOCYTES 17 % (15-50); MONOCYTES 2 % (2-11); NEUTROPHILS 78 % (40-80); PLATELET ESTIMATE INCREASED
[2020-06-02 15:55] VITALS: BP 128/58
[2020-06-02 20:50] VITALS: BP 132/67
--- NOTE | 2020-06-02 21:30 | NUR ---
PATIENT LYONF IN BED WATCHING TV. CARNBERRY DRINK PROVIDED PER PATIENT REQUEST. vswnl. AAOX4. CLIR. BED IN LOWEST POSITON. WALKER WITHIN REACH. WILL CONT TO MONITOR.
--- NOTE | 2020-06-03 01:00 | NUR ---
SLEEPING RESTFULLY. CLIR. BED IN LOWEST POSITON. WALKER WITHIN REACH.
[2020-06-03 01:21] VITALS: BP 137/58
[2020-06-03 05:17] VITALS: BP 139/72
[2020-06-03 07:00] VITALS: BP 111/80
[2020-06-03 07:00] LABS: ANION GAP 10.5 mmol/L (8-16); CALCIUM 8.3 mg/dL (8.5-10.1); CARBON DIOXIDE 27.3 mmol/L (21.0-32.0); CREATININE - SERUM 1.3 mg/dL (0.6-1.3); MAGNESIUM - SERUM 1.9 mg/dL (1.8-2.4); PHOSPHOROUS 4.6 mg/dL (2.5-4.9); POTASSIUM - SERUM 3.8 mmol/L (3.5-5.1)
[2020-06-03 07:02] LABS: BASOPHILS 1.7 % (0-2); EOSINOPHILS 2.2 % (0-7); HEMATOCRIT 34.1 % (36.0-48.0); HEMOGLOBIN 10.9 g/dL (12-16); IMMATURE GRANULOCYTES 1.6 % (0-5); LYMPHOCYTES 17.1 % (15-50); MCH 25.5 pg (26.0-34.0); MCV 79.9 fL (80.0-100.0); MONOCYTES 8.9 % (2-11); NEUTROPHILS 68.5 % (40-80); PLATELET COUNT 750 10x3/uL (130-400); RBC 4.27 10x6/uL (4.00-5.40); RDW 26.8 % (11.5-14.5); WBC 9.9 10x3/uL (4.8-10.8)
--- NOTE | 2020-06-03 07:20 | NUR ---
RECIEVE REPORT. ALERT AND ORIENTED X4. RESTING IN BED WATCHING TV. BIGIMENY 56 ON TELEMETRY. DENIES ANY NEEDS. CONTINUE PLAN OF CARE AND SAFETY PRECAUTIONS.
--- NOTE | 2020-06-03 09:13 | MORECARE ---
CASE MANAGEMENT DISCHARGE SUMMARY PATIENT: ZENIA DILL UNIT: [id number] ADM DATE: 06/01/20 AGE: 85 : 33 SEX: F ROOM/BED: D.1241 AUTHOR: BLAS BECK PHYSICIAN: REFERRING PHYSICIAN: ULI ANTHONY MD DATE OF SERVICE: 06/03/20 Discharge Plan Patient Name: ZENIA DILL Facility: [facility]:[place] : 1935 Planned Disposition: Home with Home Health Anticipated Discharge Date: Discharge Date: Expected LOS: Initial Reviewer: [id number] Initial Review Date: 06/01/2020 Generated: 06/03/20 10:12 am Comments DCP- Discharge Planning Updated by [email or web address]: Mario Bravo on 06/03/20 7:[address] CM met with patient to complete DC plan and to evaluate needs. Patient lives independently with family. Patient stated that she was recently admitted for "problems" with her potassium and sodium. The patient stated that after she was discharged, she was home for one day and her "...chest was filling up..." and the patient stated that she "...had too much fluid". Patient was readmitted on 01 June 2020 for CHF and hyponatremia. The patient stated that she was not able to go to her follow up appointment and that she was not prescribed new medications. At discharge, the patient plans to return home and feels this is a safe discharge. CM discussed availability of home health, rehab services, and medical equipment. Patient declined SNF, IPR, and DME. Patient stated that she would like [facility] but does not want the [facility] that she had 3 years ago. Previous record indicates a referral for [facility]. Spoke to Chandni at [facility]. Chandni stated that she has a referral for the patient and is awaiting DC to schedule SOC. FIDEL signed for "any home health service that's not the one I had before" and placed on chart. CM team will notify [facility] of DC fax clinicals. Patient voiced no other needs at this time and is satisfied with DC plan. Transportation provider at discharge will be with her son, Dominguez Dill ([phone]). DC IMM delivered, explained, signed by the patient, and placed in chart. Signed form also left with the patient. CM will continue to follow and will assist as needed with dc plans/needs. External Providers External Provider: [facility] Next Contact Date: Service Request Date: Service Type: Resolution: Reviewer: Comments: Coverage Notice Reviewer: [id number] Miguel A Bravo Notice Issued Date-Time: 06/02/2020 18:30 Notice Type: IM Discharge Notice Notice Delivered To: Patient Relationship to Patient: Self Carry In Worker Name: Delivery Method: HAND - Hand Delivered Mahogany Days: Prior Verbal Notification: Recipient Understood Notice: Yes Recipient Signature: Yes Med Rec Note Co-signed by Attending: Coverage Notice Comment: DC IMM delivered, explained, signed by the patient, and placed in chart. Reviewer: [id number] Miguel A Bravo Notice Issued Date-Time: 06/02/2020 18:30 Notice Type: Patient Choice Letter Notice Delivered To: Patient Relationship to Patient: Self Carry In Worker Name: Delivery Method: HAND - Hand Delivered Mahogany Days: Prior Verbal Notification: Recipient Understood Notice: Yes Recipient Signature: Yes Med Rec Note Co-signed by Attending: Coverage Notice Comment: "any home health service that's not the one I had before" Patient Name: ZENIA DILL Page [phone] at 0913 All edits/amendments must be made on the electronic document DICTATION DATE: 06/03/20911 STAKES PLAYER: WILLIAM 06/03/20911 RPT#: [id number] DC DATE: STATUS: ADM IN [facility] [address] [place] [address] END OF REPORT
--- NOTE | 2020-06-03 09:19 | MORECARE ---
CASE MANAGEMENT DISCHARGE SUMMARY PATIENT: ZENIA DILL UNIT: [id number] ADM DATE: 06/01/20 AGE: 85 : 33 SEX: F ROOM/BED: D.9609 AUTHOR: BLAS BECK PHYSICIAN: REFERRING PHYSICIAN: ULI ANTHONY MD DATE OF SERVICE: 06/03/20 Discharge Plan Patient Name: ZENIA DILL Facility: [facility]:[place] : 1935 Planned Disposition: Home with Home Health Anticipated Discharge Date: Discharge Date: Expected LOS: Initial Reviewer: [email or web address] Initial Review Date: 06/01/2020 Generated: 06/03/20 10:19 am Comments DCP- Discharge Planning Updated by [email or web address]: Mario Bravo on 06/03/20 7:[address] CM met with patient to complete DC plan and to evaluate needs. Patient lives independently with family. Patient stated that she was recently admitted for "problems" with her potassium and sodium. The patient stated that after she was discharged, she was home for one day and her "...chest was filling up..." and the patient stated that she "...had too much fluid". Patient was readmitted on 01 June 2020 for CHF and hyponatremia. The patient stated that she was not able to go to her follow up appointment and that she was not prescribed new medications. At discharge, the patient plans to return home and feels this is a safe discharge. CM discussed availability of home health, rehab services, and medical equipment. Patient declined SNF, IPR, and DME. Patient stated that she would like [facility] but does not want the [facility] that she had 3 years ago. Previous record indicates a referral for [facility]. Spoke to Chandni at [facility]. Chandni stated that she has a referral for the patient and is awaiting DC to schedule SOC. FIDEL signed for "any home health service that's not the one I had before" and placed on chart. CM team will notify [facility] of DC fax clinicals. Patient voiced no other needs at this time and is satisfied with DC plan. Transportation provider at discharge will be with her son, Angel Dill ([phone]). DC IMM delivered, explained, signed by the patient, and placed in chart. Signed form also left with the patient. CM will continue to follow and will assist as needed with dc plans/needs. DCPIA - Discharge Planning Initial Assessment Updated by BELL: Mario Bravo on 06/03/20 9:14 am * Is the patient Alert and Oriented? Yes * How many steps to enter\\exit or inside your home? 0/0 * PCP Dr. Александр Alcazar * Pharmacy [facility] in [place] * Preadmission Environment Home with Family * ADLs Independent * Equipment Cane Walker * Other Equipment n/a * List name and contact numbers for known caregivers / representatives who currently or will assist patient after discharge: ANGEL DILL (son) [phone] * Verbal permission to speak to the caregivers and representatives has been obtained from the patient. Yes * Community resources currently utilized None * Please name any agencies selected above. n/a * Additional services required to return to the preadmission environment? Yes * Can the patient safely return to the preadmission environment? Yes * Has this patient been hospitalized within the prior 30 days at any hospital? Yes Coverage Notice Reviewer: BELL Bravo Notice Issued Date-Time: 06/02/2020 18:30 Notice Type: IM Discharge Notice Notice Delivered To: Patient Relationship to Patient: Self Transplant Nurse Name: Delivery Method: HAND - Hand Delivered Mahogany Days: Prior Verbal Notification: Recipient Understood Notice: Yes Recipient Signature: Yes Med Rec Note Co-signed by Attending: Coverage Notice Comment: DC IMM delivered, explained, signed by the patient, and placed in chart. Reviewer: BELL Bravo Notice Issued Date-Time: 06/02/2020 18:30 Notice Type: Patient Choice Letter Notice Delivered To: Patient Relationship to Patient: Self Transplant Nurse Name: Delivery Method: HAND - Hand Delivered Mahogany Days: Prior Verbal Notification: Recipient Understood Notice: Yes Recipient Signature: Yes Med Rec Note Co-signed by Attending: Coverage Notice Comment: "any home health service that's not the one I had before" Last DP export: 06/03/20 8:13 am Patient Name: ZENIA DILL Page [phone] at 0919 All edits/amendments must be made on the electronic document DICTATION DATE: 06/03/20918 REGASIFICATION PLANT OPERATOR: WILLIAM 06/03/20918 RPT#: [id number] DC DATE: STATUS: ADM IN [facility] [address] [place] [address] END OF REPORT
--- NOTE | 2020-06-03 12:39 | NUR ---
PER CLINTON TANG FOR PT TO D/C.
[2020-06-03] MEDS ORDERED: K-DUR20 MEQ PO (13:39)
[2020-06-03] MEDS ORDERED: LASIX40 MG PO (13:39)
[2020-06-03] MEDS ORDERED: TOPROL XL25 MG PO (13:39)
--- NOTE | 2020-06-03 14:59 | EC ---
PATIENT:ZENIA DILL DATE OF SERVICE: 06/01/20 SEX: F MEDICAL RECORD: [id number] DATE OF : [birth year] LOCATION:D.M2 D.212 AGE OF PATIENT: 85 ADMISSION DATE: 06/01/20 REFERRING PHYSICIAN: INTERPRETING PHYSICIAN: SADE YEE MD ECHOCARDIOGRAM REPORT ECHO CHARGES 4 ECHO COMPLETE Date: 06/01/20 CLINICAL DIAGNOSIS: CHF ECHOCARDIOGRAPHIC MEASUREMENTS (adult normal given) AC root (d.<3.7cm) 3.1 cm LV Septum d (<1.2 cm> 1.0 cm Valve Excursion 1.9 cm LV Septum (systole) 1.3 cm Left Atria (s.<4.0cm> 4.2 cm LVPW d(<1.2cm) 1.0 cm RV (d.<2.3cm) 2.7 cm LVPW (sytole) 1.2 cm LV diastole(<5.6CM) 5.9 cm MV E-F(>70mm/sec) cm LV systole 4.7 cm LVOT Diameter 1.5 cm MV exc.(>10mm) 1.8 cm Est.ejection fraction (50-75%) % DOPPLER: LVIT cm/sec A 73 cm/sec E 67 cm/sec LA cm/sec RVSP 39 mmHg LVOT 80 cm/sec AOP1/2T m/s Asc. Ao 139 cm/sec RVOT 45 cm/sec RA cm/sec PA 68 cm/sec AV Gradient Peak 7.7 mmHg AV Mean 4.4 mmHg AV Area 1.1 cm MV Gradient Peak 2.8 mmHg MV Mean 1.5 mmHg MV Area cm COMMENTS: Director Speech And Hearing: Toya [place]IVER Ignition Expert: 5 Dr. Yee TAPE# Pericardial Effusion N DATE OF SERVICE: CLINICAL INDICATION: CHF. INTERPRETATION: Normal left ventricular chamber size and contractile function with ejection fraction 55%. Left atrial chamber appears normal. Right atrium and right ventricular chamber size and function appears normal. Aortic valve appears normal. No aortic regurgitation. Mitral valve appears normal. Trace mitral regurgitation. Tricuspid valve appears normal. Trace tricuspid regurgitation. Pulmonic valve appears normal. No pulmonary insufficiency. No ECHOCARDIOGRAM REPORT [id number] ZENIA DILL pericardial effusion visualized. IMPRESSION: Normal left ventricular chamber size and contractile function, ejection fraction 55%. TRANSINT:[id number] Voice Confirmation ID: [id number] DOCUMENT ID: [id number] SADE YEE MD at 1459 CC: [id number] DICTATION DATE: 06/02/20 1314 PRODUCTION ASSISTANT: 06/02/20 1532 ADM IN [facility] [address] [id number]
--- NOTE | 2020-06-03 16:27 | NUR ---
ALERT AND ORIENTED X4. DC LT AC IV TIP INTACT. DISCHARGE INSTRUCTIONS GIVEN VERBALLY AND WRITTEN. DISCHARGE PAPERS SIGNED ON CHART. ESCORT TO RIDE VIA WHEELCHAIR. REMAINS FREE FROM INJURY.
--- NOTE | 2020-06-04 07:52 | MORECARE ---
CASE MANAGEMENT DISCHARGE SUMMARY PATIENT: ZENIA DILL UNIT: [id number] ADM DATE: 06/01/20 AGE: 85 : 33 SEX: F ROOM/BED: D.0884 AUTHOR: BLAS BECK PHYSICIAN: REFERRING PHYSICIAN: ULI ANTHONY MD DATE OF SERVICE: 06/04/20 Discharge Plan Patient Name: ZENIA DILL Facility: [facility]:[place] : 1935 Planned Disposition: Home with Home Health Anticipated Discharge Date: Discharge Date: 06/03/2020 Expected LOS: Initial Reviewer: [email or web address] Initial Review Date: 06/01/2020 Generated: 06/04/20 8:52 am Comments DCP- Discharge Planning Updated by [id number]: Mario Bravo on 06/03/20 7:[address] CM met with patient to complete DC plan and to evaluate needs. Patient lives independently with family. Patient stated that she was recently admitted for "problems" with her potassium and sodium. The patient stated that after she was discharged, she was home for one day and her "...chest was filling up..." and the patient stated that she "...had too much fluid". Patient was readmitted on 01 June 2020 for CHF and hyponatremia. The patient stated that she was not able to go to her follow up appointment and that she was not prescribed new medications. At discharge, the patient plans to return home and feels this is a safe discharge. CM discussed availability of home health, rehab services, and medical equipment. Patient declined SNF, IPR, and DME. Patient stated that she would like [facility] but does not want the [facility] that she had 3 years ago. Previous record indicates a referral for [facility]. Spoke to Chandni at [facility]. Chandni stated that she has a referral for the patient and is awaiting DC to schedule SOC. FIDEL signed for "any home health service that's not the one I had before" and placed on chart. CM team will notify [facility] of DC fax clinicals. Patient voiced no other needs at this time and is satisfied with DC plan. Transportation provider at discharge will be with her son, Angel Dill ([phone]). DC IMM delivered, explained, signed by the patient, and placed in chart. Signed form also left with the patient. CM will continue to follow and will assist as needed with dc plans/needs. DCPIA - Discharge Planning Initial Assessment Updated by BELL: Mario Bravo on 06/03/20 9:14 am * Is the patient Alert and Oriented? Yes * How many steps to enter\\exit or inside your home? 0/0 * PCP Dr. Александр Alcazar * Pharmacy [facility] in [place] * Preadmission Environment Home with Family * ADLs Independent * Equipment Cane Walker * Other Equipment n/a * List name and contact numbers for known caregivers / representatives who currently or will assist patient after discharge: ANGEL DILL (son) [phone] * Verbal permission to speak to the caregivers and representatives has been obtained from the patient. Yes * Community resources currently utilized None * Please name any agencies selected above. n/a * Additional services required to return to the preadmission environment? Yes * Can the patient safely return to the preadmission environment? Yes * Has this patient been hospitalized within the prior 30 days at any hospital? Yes Coverage Notice Reviewer: BELL Bravo Notice Issued Date-Time: 06/02/2020 18:30 Notice Type: IM Discharge Notice Notice Delivered To: Patient Relationship to Patient: Self Process Project Engineer Name: Delivery Method: HAND - Hand Delivered Mahogany Days: Prior Verbal Notification: Recipient Understood Notice: Yes Recipient Signature: Yes Med Rec Note Co-signed by Attending: Coverage Notice Comment: DC IMM delivered, explained, signed by the patient, and placed in chart. Reviewer: [id number] Bravo Notice Issued Date-Time: 06/02/2020 18:30 Notice Type: Patient Choice Letter Notice Delivered To: Patient Relationship to Patient: Self Process Project Engineer Name: Delivery Method: HAND - Hand Delivered Mahogany Days: Prior Verbal Notification: Recipient Understood Notice: Yes Recipient Signature: Yes Med Rec Note Co-signed by Attending: Coverage Notice Comment: "any home health service that's not the one I had before" Last DP export: 06/03/20 8:20 am Patient Name: ZENIA DILL Page [phone] at 0752 All edits/amendments must be made on the electronic document DICTATION DATE: 06/04/20751 INFORMATION CODER: WILLIAM 06/04/20 075 RPT#: [id number] DC DATE:06/03/20 STATUS: DIS [facility] [address] [place] [place] [address] END OF REPORT
== END 2020-06-03 16:29 | disposition home health service (06) | DRG 640 ==
LOC: D.ER 19:46 → D.M2 23:16 → OBSVTIME 23:16 → D.EDHOLD 23:16 → D.M2 06-01 00:35
PROVIDERS: Family Medicine; ADMIT Family Medicine; ATTEND Family Medicine
DX: E87.1 Hypo-osmolality and hyponatremia (principal); I50.33 Acute on chronic diastolic (congestive) heart failure; I11.0 Hypertensive heart disease with heart failure; I50.9 Heart failure, unspecified; E78.5 Hyperlipidemia, unspecified; D73.2 Chronic congestive splenomegaly; D50.9 Iron deficiency anemia, unspecified; K21.9 Gastro-esophageal reflux disease without esophagitis